=== PATIENT | female | born 1950 | race Caucasian/White ===

== ENCOUNTER 2024-05-23 00:32 | Emergency (ER) | payer MEDICARE ==
[~2024-05-23] VITALS: Ht 172.7 cm; Wt 97.5 kg
[2024-05-23] MEDS ORDERED: IPRAT-ALBUT 0.5-3 ML INH (00:46)
[2024-05-23 00:56] LABS: BASOPHILS 0.5 % (0-2); EOSINOPHILS 2.9 % (0-6); HEMATOCRIT 41.1 % (35.0-50.0); HEMOGLOBIN 13.7 g/dL (12.0-18.0); LYMPHOCYTES 28.5 % (24-44); MCH 31.3 (27-36); MCHC 33.3 g/dl (30-36); MONOCYTES 8.6 % (0-12); NEUTROPHILS 59.5 % (39-80); PLATELET COUNT 307 K/uL (140-440); RBC 4.37 M/ul (4.3-5.7); RDW 14.2 (10.5-15.0)
[2024-05-23 01:10] LABS: ALBUMIN 3.1 g/dL (3.4-5.0); ALBUMIN/GLOBULIN RATIO 0.76 (1.1-2.4); ANION GAP 11.1 (7-21); BILIRUBIN, TOTAL 0.4 ng/dL (0.2-1.0); BUN/CREATININE RATIO 11.92 (6.0-28.6); CREATININE, SERUM 1.09 mg/dL (0.55-1.02); MAGNESIUM 1.9 mg/dL (1.8-2.4); POTASSIUM 4.1 mmol/L (3.5-5.1); PROTEIN, TOTAL 7.2 g/dL (6.4-8.2)
[2024-05-23 01:40] VITALS: BP 145/77
== END 2024-05-23 01:40 | disposition home or self-care (01) ==
LOC: ED 00:32
PROVIDERS: Emergency Medicine
DX: K64.4 Residual hemorrhoidal skin tags (principal); Z79.899 Other long term (current) drug therapy; Z88.5 Allergy status to narcotic agent
CPT/HCPCS: 36415; 80053; 83735; 85025; 99283